=== PATIENT | female | born 1995 | race Caucasian/White ===

== ENCOUNTER 2021-12-31 06:06 | Day surgery (SDC) | payer OTHER, SELFPAY ==
[2021-12-31] VITALS (7 sets, daily range): BP systolic 109–133; BP diastolic 78–96; PULSE 79–98; RESP 14–16; TEMP 36.7–37.2; O2SAT 97–100; BMI 28.3
--- NOTE | 2021-12-31 | IMM_PTH ---
PATIENT: RICKI SALEH LOC: [facility] – [place] U#:[id number] AGE/SX: 26/F ROOM: RE12/31/[address]: Dr. Joe Degroot DO : 1995 BED: DIS: 12/31/2021 SPEC #: [id number] RECD: 01/01/22 12:41 STATUS: SAKINA REQ #: [id number] KORIN: 12/31/21 00:[address]: Joe Degroot DEPT: IMMUNOHISTOCHEMISTRY RECD BY: Ophelia Benitez ENTERED: 01/01/22 12:43 SP TYPE: IMMUNO OTHR DR: No Primary Care Phys Tissues: Hand, NOS Procedures: SMA (add) CD31 (add) CD34 (add) CD56 (add) CK20 (add) CK7 (add) CK8 (add) DESMIN (add) JUAN (add) KI-67 (add) MACRO (add) P53 (add) Vimentin (add) SMM (add) NEUROFIL (add) Pankeratin (initial) S-100 (add) PHYSICIAN & INSTITUTION [address] [address] SPECIMEN INFORMATION: Tissue Source: Right dorsal hand Clinical Info: Right hand ganglion cyst Specimen Number: [id number] CPT code: 46318, 67744 x16 METHODOLOGY: Deparaffinized sections of prefer/formalin-fixed tissue or PAP/DQ stained slides are incubated with monoclonal/polyclonal antibodies/oligonucleotide probes. Localization is made via biotin free immunoperoxidase method. Appropriate controls are performed and reacted as expected. Results on target cell population are indicated in the following table: RESULTS: ANTIBODY / CLONE RESULT AE1-3 (AE1/AE3/PCK26) positive, focal CK7 (OV-TL12/30) positive CK8 (01lchqU32) positive, focal CK20 (KS20.8) negative Vimentin (V9) positive CD31 (HANY/70A) positive, focal CD34 (QBEnd-10) negative Macro (HAM-56) negative Myosin (simms1) negative Desmin (CE-R-11) negative S-100 (4C4.9) negative Neurofil (2F11) negative CD56 (123C3.D5) negative JUAN (E29) negative P53 (DO-7) negative (wild type) Ki-67 (30-9) positive, ~20% These tests were developed and their performance characteristics determined by [facility]. They may not have been cleared or approved by the U.S. Food and Drug Administration. The FDA has determined that such clearance or approval is not necessary. The above immunohistochemical/dualISH markers are ordered by Dr. Steve Hodges and reviewed by the Pathologist. INTERPRETATION: Right dorsal hand, excision: Benign sweat gland tumor, consistent with spiradenoma. The specimen is sent to [facility] for expert opinion and reviewed by Dr. Cassidy and above diagnosis is rendered. This case has been reviewed in consultation with Dr. Hodges who concurs with the above diagnosis. /SJ 01/06/22
--- NOTE | 2021-12-31 | LIP_PTH ---
PATIENT: RICKI SALEH [place] [facility] [id number] AGE/SX: 26/F ROOM: RE12/31/[address]: Dr. Joe Degroot DO : 1995 BED: DIS: 12/31/2021 SPEC #: [id number] RECD: 12/31/21 11:12 STATUS: SAKINA CAMPOS #: [id number] KORIN: 12/31/21 00:[address]: Joe Degroot DEPT: SURGICAL PATHOLOGY RECD BY: Donte Sun ENTERED: 12/31/21 11:12 SP TYPE: LIPOMA OT DR: No Primary Care Phys Tissues: Hand, NOS Procedures: Surgery Specimen Level III HEADER OPERATION: Hand dorsal ganglion cyst excision PRE-OP DIAGNOSIS: Right hand ganglion cyst TISSUE SUBMITTED: Right dorsal hand lipoma MICROSCOPIC DIAGNOSIS Right dorsal hand lesion, biopsy: Benign sweat gland tumor, consistent with spiradenoma. See comment. /MARII 01/06/22 COMMENT Immunohistochemistry ([id number]) supports the above diagnosis. The specimen is sent to [facility] for expert opinion and reviewed by Dr. Cassidy and above diagnosis is rendered. The complete report is viewable in patient?s EMR. Case has been reviewed in consultation with Dr. Hodges who concurs with the above diagnosis. IDC:AM MICROSCOPIC DESCRIPTION Slides are reviewed. GROSS DESCRIPTION Received in fixative is one container labeled with the patient's name and designated right dorsal hand lipoma. The specimen consists of an irregular piece of adipose tissue measuring 1.5 x 1 x 0.5 cm. The specimen appears to be previously sectioned. The specimen is bisected and submitted entirely in one cassette. / MARII:kandice 12/31/2021 TC:1 CPT: 96616
[2021-12-31 06:43] LABS: Internal QC Validated? YES +Cl - CLEAR BKGD
[2021-12-31 06:44] LABS: Pregnancy, Urine Negative Negative
[2021-12-31] MEDS: Lactated Ringers 1,000 ML 15 ML IV (06:54)
[2021-12-31] MEDS: Cefazolin 2 GM in 0.9% Normal Saline 100 ML IV (07:34)
[2021-12-31] MEDS: Lidocaine 1% (20 ml mdv) 20 ML Vial (07:35)
--- NOTE | 2021-12-31 07:56 | DCINST_ITS ---
Discharge Instructions Follow Up Care Test Results: Test results from this visit will be discussed in further detail at your follow- up appointment, if applicable. Discharge Plan Admission Primary Reason for Your Visit: Right hand cyst excision Attending Provider: Joe Degroot Primary Care Provider: Care Physician,No Primary Instructions Additional Instructions / Restrictions: Follow preprinted instructions from your surgeons office. Discharge Orders/Prescriptions Prescriptions: New hydrocodone-acetaminophen 5-325 mg tablet 1 tab PO Q6H PRN (Reason: pain) 5 Days Qty: 20 0RF Continued acetaminophen [Tylenol] 325 mg Tablet 325 mg PO Q6H PRN (Reason: Pain) Excedrin Migraine 250-250-65 mg Tablet 1 tab PO Q6H PRN (Reason: Migraine Headache) Referrals / Follow Up: Joe Degroot DO [Med Staff - Active Staff] - Within 2 Weeks Care Physician,No Primary [Primary Care Provider] - Disposition Disposition (needs filled in before D/C Order can be placed): Home, Self Care
--- NOTE | 2021-12-31 07:57 | PCM.OPRPT ---
Report of Operation Date of Procedure: 12/31/21 Description of Surgical Findings:: Preoperative diagnosis: Suspected right dorsal hand ganglion cyst Postoperative diagnosis: Right dorsal hand lipoma Procedure: Excisional biopsy right dorsal hand lipoma Primary Surgeon: Joe Degroot DO Anesthesia: LMA with local Anesthesiologist: Dr. Cohen Estimated blood loss: 10 cc IV fluids: 600 cc crystalloid Complications: None apparent Specimen: Right dorsal hand lipoma right dorsal hand lipoma Intraoperative findings: 1 x 1 x 1 cm suspected right dorsal hand lipoma. Packing/drains: None Implants: None Preoperative indications: This is a 26-year-old female who presented to my office with 2-3 years of dorsal right hand pain and a subcutaneous mass. She states she frequently bumps it which causes increasing pain. Denies any numbness or tingling. X-rays were unremarkable. Exam was consistent with a dorsal hand ganglion cyst likely arising from the extensor tendon surface. I discussed operative interventions including benign neglect, aspiration, and surgical excision. Patient expressed interest in surgical excision as this is the lowest chance of recurrence. The risks, benefits, alternatives to procedure reviewed with the patient at length and she agreed to proceed. Risk included but were not limited to bleeding, infection, loss of life or limb, need for additional surgery, persistent pain, nonhealing wound, recurrence of the cyst, neurovascular injury, DVT or PE. Patient expressed understanding of these risks and wished to proceed with surgery. Informed consent was obtained in the outpatient setting. Description of procedure: Patient was identified in the preoperative holding area by name, medical record number, and date of . The operative extremity was marked. All questions were answered to the patient's satisfaction. At time of her procedure, patient brought the operative suite and positioned supine on a standard operating table. All bony prominences were well-padded. Gentle MAC anesthesia was administered. I applied a well-padded pneumatic tourniquet to the right forearm. I anesthetized the planned incision with a tumescent field block utilizing 10 cc 1% lidocaine plain. We then prepped and draped the right upper extremity in normal, sterile orthopedic fashion. 2 g Ancef was administered prior to incision by anesthesia staff. We performed timeout with all parties in attendance in agreement the side, site, operation be performed. No concerns were voiced and we elected to proceed with surgery. I first exsanguinated the right upper extremity with an Esmarch bandage. Tourniquet was inflated to 250 mmHg. Longitudinal incision was made overlying the mass. Upon incising the skin, a mass consistent with lipoma herniated through the skin. Lipoma was mobilized and excised. No remaining tissue consistent with lipomatous tissue was identified. Dorsal hand fascia was left intact. No remaining masses were palpated or visualized. Tourniquet was deflated. Hemostasis achieved with bipolar cautery. I thoroughly irrigated the wound. Dermis was reapproximated with buried 3-0 Vicryl suture in interrupted fashion. Skin was finally closed with a running horizontal mattress 4-0 Monocryl suture and skin glue. Sterile compression dressing was applied. Patient tolerated procedure well without apparent complication. She was safely awoken in the operative suite and transferred to her gurney and subsequently PACU in stable condition. Postoperative plan: Patient be weightbearing less than 3 pounds the operative extremity until follow-up in 2 weeks. Okay to remove dressing on postoperative day #2 and shower. Range of motion as tolerated to the hand and wrist. Written instructions provided. Prescription for [place] was provided. Rrkn-pim-fintiyh analgesics also encouraged. Aspirin 81 mg twice daily for DVT prophylaxis for 2 weeks.
== END 2021-12-31 08:54 | disposition home or self-care (01) ==
LOC: SDC 06:12 → AC 06:12
PROVIDERS: Anesthesiology; Referring Provider Student in an Organized Health Care Education/Training Program; Visit Provider Student in an Organized Health Care Education/Training Program
PROC: (CPT 64721; principal; 2021-12-31 07:15)
DX: D23.61 Other benign neoplasm of skin of right upper limb, including shoulder (principal); M67.441 Ganglion, right hand; M79.641 Pain in right hand; E66.3 Overweight; R03.0 Elevated blood-pressure reading, without diagnosis of hypertension; Z71.3 Dietary counseling and surveillance; Z68.28 Body mass index [BMI] 28.0-28.9, adult
CPT/HCPCS: 11420; 00400; 81025; 88304; 88341; 88342; J7120; J2405